=== PATIENT | female | born 1975 | race Two or more races ===

== ENCOUNTER 2018-08-30 16:56 | Emergency (ER) | payer SELFPAY ==
[~2018-08-30] VITALS: Ht 157.5 cm; Wt 67.0 kg
[2018-08-30] MEDS ORDERED: ONDANSETRON HCL 4MG/2ML INJ IV STA (18:31)
[2018-08-30] MEDS ORDERED: MORPHINE SULFATE 4 MG/ML CPJ (NOT FOR IM USE) IV STA (18:31)
[2018-08-30] MEDS ORDERED: KETOROLAC 30MG/ML VIAL IV ONE (22:00)
[2018-08-31] MEDS ORDERED: MORPHINE SULFATE 4 MG/ML CPJ (NOT FOR IM USE) IV ONE (00:15)
[2018-08-31] MEDS ORDERED: ONDANSETRON HCL 4MG/2ML INJ IV ONE (02:45)
[2018-08-31 02:55] VITALS: BP 110/67
== END 2018-08-31 03:41 | disposition home or self-care (01) ==
LOC: ER 17:19
DX: S92.344A Nondisplaced fracture of fourth metatarsal bone, right foot, initial encounter for closed fracture (principal); S92.354A Nondisplaced fracture of fifth metatarsal bone, right foot, initial encounter for closed fracture; T14.8XXA Other injury of unspecified body region, initial encounter; S40.811A Abrasion of right upper arm, initial encounter; M25.551 Pain in right hip; V03.90XA Pedestrian on foot injured in collision with car, pick-up truck or van, unspecified whether traffic or nontraffic accident, initial encounter; Y93.89 Activity, other specified; Y92.488 Other paved roadways as the place of occurrence of the external cause
CPT/HCPCS: 72040; 73502; 73610; 73620; 81025; 96374; 96375; 96376; 99283; J1885; J2270; J2405; Z7610